=== PATIENT | male | born 1980 | race Caucasian/White ===

== ENCOUNTER 2020-03-31 19:34 | Inpatient (IN) ==
[2020-03-31] MEDS ORDERED: Nicotine 14 MG PATCH.TD24 TD SCH (20:15)
[2020-04-01] MEDS ORDERED: haloperidoL 5 MG TABLET PO PRN (01:11)
[2020-04-01] MEDS ORDERED: *HR* LORazepam 2 MG/ML VIAL IM PRN (01:11)
[2020-04-01] MEDS ORDERED: Haloperidol Lactate 5 MG/ML VIAL IM PRN (01:11)
[2020-04-01] MEDS ORDERED: Acetaminophen 325 MG TABLET PO PRN (01:11)
[2020-04-01] MEDS ORDERED: *HR* LORazepam 1 MG TABLET PO PRN (01:11)
[2020-04-01] MEDS ORDERED: Mag Hydrox/Al Hydrox/Simeth 30 ML UDC PO PRN (01:11)
[2020-04-01] MEDS ORDERED: MOM Conc 10 ML UD.LIQ PO PRN (01:11)
[2020-04-01] MEDS: hydrOXYzine pamoate 25 MG CAPSULE PO PRN ×2 (02:37→21:47)
[2020-04-01] MEDS: traZODone 50 MG TABLET PO PRN ×2 (02:37→21:48)
[2020-04-01] MEDS: Nicotine 21 MG PATCH.TD24 TD SCH (08:47)
[2020-04-02] MEDS: Nicotine 21 MG PATCH.TD24 TD SCH (09:12)
[2020-04-02] MEDS: *HR* Metformin 500 MG TABLET PO SCH ×2 (12:17→17:17)
[2020-04-02] MEDS: lisinopriL 5 MG TABLET PO SCH (12:17)
[2020-04-02] MEDS: traZODone 50 MG TABLET PO PRN (21:59)
[2020-04-02] MEDS: hydrOXYzine pamoate 25 MG CAPSULE PO PRN (21:59)
[2020-04-03] MEDS: lisinopriL 5 MG TABLET PO SCH (08:36)
[2020-04-03] MEDS: *HR* Metformin 500 MG TABLET PO SCH (08:37)
[2020-04-03] MEDS: Nicotine 21 MG PATCH.TD24 TD SCH (08:37)
[2020-04-03 09:22] VITALS: BP 164/117
== END 2020-04-03 12:35 | disposition home or self-care (01) | DRG 751 ==
LOC: EMEROOARM 19:34 → 1ANU 04-01 00:59
PROVIDERS: ADMIT Psychiatry & Neurology Psychiatry; ATTEND Psychiatry & Neurology Psychiatry